=== PATIENT | female | born 1960 | race Caucasian/White ===

== ENCOUNTER 2021-06-07 11:03 | Emergency (ER) | payer OTHER ==
[~2021-06-07] VITALS: Ht 165.1 cm; Wt 77.1 kg
[2021-06-07 11:20] VITALS: BP 146/64
--- NOTE | 2021-06-07 11:28 | NUR ---
Patient assisted by family to lobby via wheelchair.
--- NOTE | 2021-06-07 11:41 | NUR ---
X-ray tech transported patient from lobby via wheelchair to [facility].
--- NOTE | 2021-06-07 12:37 | NUR ---
SHAINA Hills is evaluating patient in triage room.
[2021-06-07] MEDS ORDERED: NAPR-54 PO (12:44)
[2021-06-07] MEDS ORDERED: HYDROcodone/APAP 5/325 MG 1 TAB TAB PO ONE (12:45)
[2021-06-07 13:07] VITALS: BP 146/64
--- NOTE | 2021-06-07 13:07 | NUR ---
PT RIGHT ANKLE WRAPPED WITH 3" BOUCHRA WRAPS X2 CMS WNL BEFORE AND AFTER. PT GIVEN CRUTCHES THAT WERE ADJUSTED TO PT'S SIZE AND HEIGHT, PT WAS GIVEN ONE ON ONE INSTRUCTIONS ON HOW TO USE CRUTCHES AND THEN SHOWED PROPER DEMENSTRATION OF CRUTCHES USAGE. PT HAD NO FURTHER QUESTIONS, PA NOTIFIED.
== END 2021-06-07 13:07 | disposition home or self-care (01) ==
LOC: MED 11:03
DX: S93.401A Sprain of unspecified ligament of right ankle, initial encounter (principal); S80.01XA Contusion of right knee, initial encounter; Z79.899 Other long term (current) drug therapy; W10.8XXA Fall (on) (from) other stairs and steps, initial encounter; Y93.01 Activity, walking, marching and hiking; Y92.89 Other specified places as the place of occurrence of the external cause; Y99.8 Other external cause status
CPT/HCPCS: 73562; 73610; 99284